=== PATIENT | female | born 1975 | race Caucasian/White ===

== ENCOUNTER 2016-11-30 20:14 | Inpatient (IN) | payer OTHER ==
[~2016-11-30] VITALS: Ht 162.6 cm; Wt 102.3 kg
[2016-11-30 20:17] VITALS: BP 139/104; PULSE 104; RESP 16; O2SAT 99
--- NOTE | 2016-11-30 21:24 | ED.REPORT ---
HPI-Psychiatric Illness Date of Service Nov 30, 2016 ED Provider: Michael Best MD Patient is a 41 year old female with a history of bipolar disorder with prior suicide attempt who presents to the ED complaining of suicidal ideations after a stressful situation yesterday. The patient was apparently arrested yesterday due to a financial situation that occurred last year. This made the patient very depressed and she informed her that if he was not with her she would commit suicide. The patient would commit suicide by shooting herself with her 's gun. The patient previously tried to commit suicide in 2014 by jumping in front of traffic. The patient has not had any previous psychiatric admissions. The patient is on psychiatric medications and is followed by a counselor. In fact, the patient had been doing so well that she is not currently seeing her counselor. Tonight, the patient first presented to [facility] for assistance. They were unable to coordinate admission, so she was referred to [facility]. There is currently a bed available at the Care [facility]. She admits to using marijuana every night to help her sleep. The patient denies alcohol or any other drug abuse. Patient does not smoke cigarettes. Patient denies having any medical complaints at this time. Nursing Notes Stated Complaint: SUICIDAL Chief Complaint: Psychiatric Complaint Nursing Notes Reviewed: Yes Allergies: Coded Allergies: azithromycin (Verified Allergy, Severe, rash and swelling, 11/30/16) Penicillins (Verified Allergy, Intermediate, 11/30/16) peanut (Verified Allergy, Intermediate, 11/30/16) promethazine (Verified Allergy, Intermediate, 11/30/16) Scheduled Alprazolam (Alprazolam) 0.5 Mg Tablet 0.5 MG PO BIDBL Takes in AM and noon Amiloride (Amiloride) 5 Mg Tablet 5 MG PO DAILY Bupropion ER (Bupropion ER) 300 Mg Tab.er.24h 300 MG PO DAILY Cholestyramine (Cholestyramine Packet) 4 Gm Packet 4 GM PO QPM takes at 1800 (2-4 hours apart from other meds) Folic Acid (Folic Acid) 1 Mg Tablet 1 MG PO DAILY Hydroxychloroquine Sulfate (Hydroxychloroquine Sulfate) 200 Mg Tablet 400 MG PO DAILY Isometheptene Mucate (Isometheptene Mucate) 5 Gm Powder 65 MG ORAL QID Lamotrigine (Lamictal) 200 Mg Tablet 200 MG PO HS Meloxicam (Meloxicam) 7.5 Mg Tablet 7.5 MG PO DAILYWL Takes at noon Omeprazole (Omeprazole) 40 Mg Capsule.dr 40 MG PO BIDAC Takes at 0900 and 1600 Venlafaxine ER (Venlafaxine ER) 150 Mg Tab.er.24 150 MG PO DAILY Zolpidem (Zolpidem) 10 Mg Tablet 10 MG PO HS Scheduled PRN Cyclobenzaprine (Cyclobenzaprine) 10 Mg Tablet 10 MG PO TID PRN PRN Spasm Prednisone (PredniSONE) 5 Mg Tab 5-20 MG PO DAILY PRN PRN RA flare Tramadol (Tramadol) 50 Mg Tablet 50 MG PO Q6H PRN PRN For Pain General Time Seen by MD: 21:23 Chief Complaint Suicidal ideation Hx Obtained From: Patient Arrived By: Walk-in Onset Occurred: Yesterday Symptom Duration: Since onset Severity: Current: No pain currently Severity: Maximum: No pain Recent Healthcare: No recent doctor visit, No recent hospitalization Similar Sx Previous: Yes Risk-Psychiatric Illness Suicide Risk Stratification Suicide Risk Factors - Adult: : Access to firearms: Previous attemptNo: Alcohol use, Prior psych admission, Substance abuse RF Statements: Risk factors reviewed Past Medical History Past Medical History bipolar disorder anxiety rheumatoid arthritis fibromyalgia IBS Past Surgical History none reported Smoking History Never Smoker Social History Drug Use: THC Other Social History: Good social support, , Lives with children, Local resident Ambulatory Status Independent Review of Systems Constitutional: Denies: Chills, Fever Psychiatric: Reports: Depression, Suicidal ideation Complete sys rev & neg: except as marked. Physical Exam Initial Vital Signs Vital Signs (First) Date Time Temp Pulse Resp B/P Pulse Ox O2 Delivery O2 Flow Rate FiO2 11/30/16 20:17 36.3 104 16 139/104 99 Room Air Initial VS: Reviewed, Vital signs abnormal Head / Eyes: Atraumatic, Normocephalic, PERRL ENT: Mucous membranes moist, Conjunctiva normal, No scleral icterus Neck: Supple, Non-tender, Full range of motion Respiratory: Breath sounds normal, Clear to auscultation, No respiratory distress Cardiovascular: Regular rate & rhythm, Heart sounds normal Abdomen / GI: Soft, Non-tender Extremities: Vascular intact, Neuro intact, No swelling Skin: Warm, Dry, No cyanosis General/Constitutional: Awake, Alert Behavior: Positive: Tearful Appearance / Presentation: Positive: Obese Neurologic: Oriented X3, Speech NL, No motor deficits, No sensory deficits Psychiatric: No hallucinations (does not appear to be reacting to internal stimuli) Abnormal Mood/Affect: Positive: Depressed, Flat affect Abnormal Thinking / Perception: Positive: Suicidal, with plan Interpretation & Diagnostics [facility] laboratory from earlier today is normal. Re-Eval/Medical Decision Med Decision/Clinical Course 41-year-old female with increasing depression and suicidal ideation was seen at [facility] earlier today and medically cleared. There was a bed available here so she was transferred here for admission. Source of Hx: Old records Re-Evaluation/Progress #1: Time of Eval: 21:45 Re-Evaluation/Progress Note: Informed the patient of the plan to admit her to the Care Center. Patient understands and agrees with this plan. All questions were addressed. Re-Evaluation/Progress #2: Time of Eval: 22:23 Re-Evaluation/Progress Note: Patient has been accepted to the Care Center. Consultation : Referral / Consult Name: BrunoNitza Mondragon MICK Note: Admission is accepted by [facility]. Counseled Regarding: Diagnosis, Lab results, Need for admission Discharge & Departure Impression: Primary Impression: Suicidal ideation Additional Impression: Depression Depression Type: reactive depression Qualified Code: F32.9 - Major depressive disorder, single episode, unspecified )( Condition at Discharge: Clear for psych facility Disposition: ADMITTED TO HOSPITAL Discharge Condition All VS Reviewed: Yes Condition: Stable Referrals: Alessandra Burton PA-C (PCP) Penny Attestation Portions of this note were transcribed by Paola Alexis. I, Dr. Best personally performed the history, physical exam and medical decision-making; I reviewed and confirmed the accuracy of the information in the transcribed note. Signed by: Penny Crowley, 11/30/2016 [id number] copies to: Alessandra Burton PA-C, Howard L MD Nov 30, 2016 21:24 Paola Alexis Nov 30, 2016 21:29
[2016-11-30] MEDS ORDERED: lamoTRIgine 100 mg Tablet PO ONE (22:20)
[2016-11-30] MEDS ORDERED: MIDRIN PO ONE (22:30)
[2016-11-30] MEDS ORDERED: PRD5T PO (23:28)
[2016-11-30] MEDS ORDERED: BUPR300T52 PO (23:28)
[2016-11-30] MEDS ORDERED: TRAM50TA2 PO (23:28)
[2016-11-30] MEDS ORDERED: HYDR200T5 PO (23:28)
[2016-11-30] MEDS ORDERED: MELO-259 PO (23:28)
[2016-11-30] MEDS ORDERED: AMIL5TAB2 PO (23:28)
[2016-11-30] MEDS ORDERED: QUE9 PO (23:28)
[2016-11-30] MEDS ORDERED: LAMO200T PO (23:28)
[2016-11-30] MEDS ORDERED: VENL150T3 PO (23:28)
[2016-11-30] MEDS ORDERED: CYCL10TA9 PO (23:28)
[2016-11-30] MEDS ORDERED: ZOLP10TA5 PO (23:28)
[2016-11-30] MEDS ORDERED: ALPR0.5T8 PO (23:28)
[2016-11-30] MEDS ORDERED: FOLI1TAB18 PO (23:28)
[2016-11-30] MEDS ORDERED: [UNRECOGNIZED DRUG - CODE] ORAL (23:29)
[2016-11-30] MEDS ORDERED: OMEP40CA36 PO (23:29)
[2016-12-01 00:22] VITALS: BP 132/81; PULSE 98; RESP 18; O2SAT 98
[2016-12-01] MEDS ORDERED: Magnesium Hydroxide 10 mL Oral Concentration PO PRN (01:10)
[2016-12-01] MEDS ORDERED: Alum-Mag Hydrox-Simeth 30 mL Suspension PO PRN (01:10)
[2016-12-01] MEDS ORDERED: Benzocaine-Menthol Lozenge 2/Pkg PO PRN (01:10)
--- NOTE | 2016-12-01 03:04 | NUR ---
admit note nursing 11-7 this is a 41 year old female who presented to [facility] seeking voluntary admission. she was medically cleared, evaluated and accepted as a voluntary patient. she had an encounter with police yesterday concerning financial irregularities with a past employer and has rapidly decompensated with significant suicidal ideation. has a hx of bipolar which is managed with her pcp prescribing and [facility] counseling. has 3 past suicide attempts the last being in 2014 when she attempted to jump into traffic. has no prior hospitalizations. currently feels her family would be better off without her and that she would use a gun if left alone. has secured the firearms. she arrived with er staff/security at 0025. presented as distraught, crying and seeking help. physical assessment- denies any acute medical/physical injury/need and none is apparent. is a/o x3, vs- wnl, multiple allergies including PEANUTS, ht- 64" wt- 225 lbs. hx of migraines, bipolar, fibromyalgia, rheumatoid arthritis, ibs, cholecystectomy, breast reduction, skin cancer. completed the admission process, agrees to no self harm, searched, briefly oriented to the admission process, given bed 220, asked for and received 5 mg of ambien at 0140 with good effect, has appeared to sleep after 0200, assessed q 15 minutes. jamila
[2016-12-01] MEDS: hydrOXYzine Pamoate 25 mg Capsule PO PRN (10:06)
[2016-12-01 11:00] VITALS: BP 144/89; PULSE 108; RESP 18
--- NOTE | 2016-12-01 11:44 | NUR ---
Nursing Notes [id number] Mood, Behavior S/O: Pt ate 20% of breakfast. Pt out in milieu with very sad affect. Pt is tearful when approached. Pt rated her anxiety at a "9" on a scale of 1-10/10 the worst. Pt stated, "It was a 12 before I met with the doctor." Vistaril 50 mg given at 1006. Pt con't to be anxious 1 1/2 later. Pt attended groups today. Her affect was calmer while she was working on a card. Pt rated her depression at a "8." A: Pt needs help regulating her emotions. P: Provide supportive environment. Monitor medications & effects.
[2016-12-01] MEDS: buPROPion XL 300 mg ER24 Tablet PO SCH (13:26)
[2016-12-01] MEDS: Hydroxychloroqine 200 mg Tablet PO SCH (13:26)
[2016-12-01] MEDS: Venlafaxine XR 75 mg ER24 Capsule PO SCH (13:27)
[2016-12-01] MEDS: Pantoprazole 40 mg ER24 Tablet PO SCH (16:41)
--- NOTE | 2016-12-01 17:02 | NUR ---
Observations 0900 to 2130 Pt affect and mood was anxious, sullen, flat and emotional. Pt speech and eye contact was ok. Pt did not attend community meeting and did not set a daily goal. Pt was minimally social with staff and select peers when approached. Pt did some art in the group room and she appeared to be enjoying it. Pt give short responses when approached. Pt attended meals in [facility] and ate 20% of breakfast and 100% of lunch. Pt maintained behavior throughout the shift. Pt was polite, pleasant and cooperative. Pt watched a little bit of TV and read the newspaper. Pt took a shower and she stated that it helped her anxiety. Pt was observed every 15 minutes throughout the shift as ordered.
--- NOTE | 2016-12-01 19:43 | HP ---
[address] [address] HISTORY AND PHYSICAL PATIENT: MADISON FRYE : 1975 MR#: [id number] ADMIT: 12/01/2016 JOB ID: [id number] INITIAL PSYCHIATRIC ASSESSMENT: IDENTIFYING DATA: The patient is a 41-year-old female with a history of depression who it is admitted on a voluntary basis due to worsening depression and suicidal ideation. CHIEF COMPLAINT: "I had a very stressful time happen on Monday and I didn't have any memory of what I am accused of." HISTORY OF PRESENT ILLNESS: The patient reports a history of bipolar disorder with prior suicide attempt who presented to the emergency department with suicidal ideation following an arrest on the day prior to admission due to a financial situation that occurred last year. The patient reports that she was feeling worsening depression and said that she would commit suicide by shooting herself with her 's gun. The patient had a prior suicide attempt by jumping out of a car in front of traffic in 2014. According to chart notes the patient first presented to [facility] for assistance and they were unable to coordinate admission so she was rushed deferred to [facility] and admitted to the Care unit. The patient states today that on the event noted above she "felt foggy and could not remember." Regarding her diagnosis of bipolar disorder, she reports having huge bursts of energy where she would clean the whole house, endless amounts of energy, which would alternate with not being able to leave the house or even answer the phone. She also reported during her manic episodes on line shopping excessively and decreased sex drive. She reports anxiety "off the chart" and that she "can't turn off my inner dialogue." She gives an example that the voices would say "did I messed up by talking to the police?" She reports having used Xanax for several years and has been taking it in the morning and at 4 p.m. She does endorse having increasing anxiety prior to the 4 p.m. dose. She reports having pain or headaches once a week, or sometimes greater, due to anxiety. She reports feeling depression most of her life, but her manic-like behaviors did not begin until her teenage years. She also reported that trying to mimic what other people are doing and endorses putting on a happy face when internally feeling quite depressed. She reports recently having difficulty with decision making, which has been complicated by having her special needs son. She reports her sleep has been horrible and she sleeps 6-8 hours using Ambien. She endorses having nightmares often about her special needs son. Her appetite is decreased with a 25-pound weight loss in four months. Energy has been decreased over the last 1-1/2 months and libido is decreased. PAST PSYCHIATRIC HISTORY: Inpatient: The patient denies inpatient treatment. Outpatient: Her last counselor was Mary Ngo, who she has seen off and on for the last five years. Her psychiatrist was MICK Martinze, but she last saw him seven years ago. Her primary care provider is Alessandra Burton PA-C, who has been prescribing her medications. PAST PSYCHIATRIC MEDICATIONS: She had difficulty remembering but said that she has been tried on Zoloft and Prozac which were not helpful and had talked about Depakote. PAST SUICIDE ATTEMPTS: In 1995 she cut her wrists but did not do much damage and needed no treatment. In 2014 she jumped out of the moving car near [employer]. She denies a history of self injurious behavior. FAMILY HISTORY: Family history of mental health significant for a sister with borderline personality disorder, bipolar disorder, and schizophrenia. Reports OCD and depression in the family. She denies a family history of suicide, although her sister accidentally overdosed. The family history of substance use is significant for a sister with polysubstance use as noted above. The family medical history is significant for cancer in her mother and the patient with malignant melanoma. SUBSTANCE USE HISTORY: The patient used to use alcohol but does not due to her migraines. She reports using marijuana and vaping at night although her urine tox screen is negative. She denies a history of cocaine, amphetamines, heroin, inhalants, hallucinogens or opiates, or IV drug abuse. She denies treatment for substance use. SOCIAL HISTORY: She was born and raised in [place] and has a sister who overdosed at the age of 44. She reports her family was intact when she was growing up and reported a pretty normal family up until the age of 13 when her sister went into drugs. She has known her for 24 years and they have been for 23 years and they have two boys, one age 17 who has special needs and the other age 15. She has some college. She has never worked in the . In the past she has worked for the [employer]. 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 Her is currently retired and they live on his income. She currently lives with her and two sons and her and mother are her primary supports. The patient denied a history of physical, sexual, or emotional abuse, but did endorse intrusive thoughts of being in [place] alone and feeling very isolated. She possibly has some increased startle and her hands balled up. LEGAL HISTORY: Significant for a recent felony theft 1 charge. PAST MEDICAL HISTORY: Malignant melanoma, currently symptom free after excision of lesion, and sees her booth manager on a yearly basis. She also has a history of rheumatoid arthritis, fibromyalgia, and irritable bowel syndrome. She endorses a history of traumatic brain injury and loss of consciousness at the age of [age] and is unsure if she received treatment. MEDICATIONS: 1. Alprazolam 0.5 mg twice daily. 2. Amiloride 5 mg daily. 3. Bupropion ER 300 mg daily. 4. Cholestyramine 4 g p.o. evening. 5. Folic acid 1 mg daily. 6. Hydroxychloroquine 200 mg tablets 400 mg daily. 7. Isometheptene mucate 5 g powder 65 mg orally four times a day. 8. Lamotrigine 200 mg nightly. 9. Meloxicam 7.5 mg daily. 10. Omeprazole 40 mg twice daily. 11. Venlafaxine 150 mg daily. 12. Zolpidem 10 mg nightly. 13. Cyclobenzaprine 10 mg three times a day as needed for spasm. 14. Prednisone 5 mg tablet 5-20 mg daily as needed for rheumatoid flare. 15. Tramadol 50 mg every 6 hours as needed for pain. 16. Percocet as needed for pain. ALLERGIES: AZITHROMYCIN, PENICILLINS, PEANUTS, AND PROMETHAZINE. LABORATORY FINDINGS: Urine tox screen was positive for benzodiazepines and tricyclics, but negative for marijuana. MENTAL STATUS EXAMINATION: Appearance: The patient is an appropriately dressed and groomed female appearing her stated age who is wearing hospital scrubs and with short cut hair in a light pink color. Behavior: The patient was cooperative, with avoidant eye contact, and tearful and dabbing at her tears throughout the interview. Speech: Demonstrated latency and rather slow rate, but normal tone and volume. Mood is "terrified." Affect is tearful. Thought content: She denies suicidal or homicidal ideation, but "wanted to run away." She agrees to notify staff should she have suicidal thoughts. She denies auditory or visual hallucinations, thought insertion, thought broadcasting, thought withdrawal, ideas of reference. She reports that her anxiety is 9/10 and her depression is 8/10. She is oriented to November, the [facility]. Thought processes: Linked and linear, goal directed. Memory: She had 3/3 object recall at 0 minutes and 0/3 object recall at 3 minutes. She was able to spell the word "world" correctly forward and backward and was able to name three objects and repeat the phrase "no ifs, ands, or buts. She was aware that the current president was Myra and the preceding president was Obama. She stated the distance from here to the [facility] of the [facility] was 5000 miles. Regarding the phrase "don't cry over spilled milk" she stated "people in the community said you shouldn't worry about things that really didn't make a difference." Regarding the phrase "people in glass houses shouldn't throw stones," she stated "no idea." Insight: Good. Judgment: Fair. Sensorium: Overall intact, without evidence of delirium or dementia. IMPRESSION: The patient is a 41-year-old female with a history of mood swings and bipolar disorder who presents with worsening depression in the context of a recent arrest and the stressor of not recalling events. The patient's alprazolam use is likely contributing to her recent increase in anxiety as she is likely having breakthrough anxiety as the alprazolam wears off later in the day. The patient also reports trauma-related nightmares which she has had for a number of years. DIAGNOSTIC IMPRESSION: [place] I: 1. Bipolar II disorder, current episode depressed. 2. Probable post-traumatic stress disorder. 3. Panic disorder. [place] II: Histrionic and dependent traits versus disorder. [place] III: See past medical history. [place] IV: Moderate. [place] V: Global Assessment of Functioning 35. PLAN: 1. The patient will be [facility] and provided a safe and secure environment. 2. The patient is currently denying suicidal ideation and is not in need of a one-to-one at this time. She is agreeable to notifying us should she have any acute suicidal or homicidal thoughts. 3. The patient is encouraged to participate with group and milieu activities. 4. The patient will be seen by the treatment team on a daily basis to assess symptoms, side effects, response to treatment. 5. The patient will be continued on lamotrigine 200 mg at bedtime. 6. The patient will be continued on Wellbutrin 300 mg daily. 7. The patient will have prazosin 1 mg at bedtime added for nightmares. 8. Venlafaxine will be increased to 225 mg daily. 9. Other medications will be continued as noted above. 10. Alprazolam will be switched to clonazepam 0.5 mg twice daily. 11. Anticipated length of stay is 5-7 days.
[2016-12-01] MEDS: ISOMETHEPTENE PO SCH (20:42)
[2016-12-01] MEDS: [UNRECOGNIZED DRUG - OTHER] PO SCH (20:42)
[2016-12-01] MEDS: lamoTRIgine 100 mg Tablet PO SCH (20:44)
[2016-12-01] MEDS ORDERED: Cholestyramine Resin Powder 4 Gm Packet PO SCH (21:00)
--- NOTE | 2016-12-01 22:23 | NUR ---
Nurses Note Evening Patient has been on the unit reading until after dinner when she was visited by her . Her affect has been blunted with an underlying irritated edge. Her appetite,hygiene were within normal limits. She denied feelings of self harm and will be monitored q 15min. for safety and support. Addendum: 12/01/16 at 2237 by AMELIA SUTHERLAND RN Amended: Links added.
--- NOTE | 2016-12-02 05:27 | NUR ---
nursing, nights, 11-7 s/o- has appeared to sleep after 0015 during q 15 minute assessments. a- difficulty falling asleep ? no apparent distress. p- monitor behavior/emotional state, quality, times and amount of sleep, use and effect of medication. jamila
[2016-12-02] MEDS: [UNRECOGNIZED DRUG - OTHER] PO SCH ×4 (07:39→22:02)
[2016-12-02] MEDS: ISOMETHEPTENE PO SCH ×4 (07:39→22:02)
[2016-12-02] MEDS: Hydroxychloroqine 200 mg Tablet PO SCH (07:41)
[2016-12-02] MEDS: buPROPion XL 300 mg ER24 Tablet PO SCH (07:41)
[2016-12-02] MEDS: Pantoprazole 40 mg ER24 Tablet PO SCH ×2 (07:46→16:47)
[2016-12-02] MEDS: Venlafaxine XR 75 mg ER24 Capsule PO SCH (07:46)
[2016-12-02] MEDS: oxyCODONE-Acetamin 5-325 mg Tablet PO PRN ×2 (08:22→17:43)
[2016-12-02 10:11] VITALS: BP 163/90; PULSE 105; RESP 16
--- NOTE | 2016-12-02 14:33 | PCM.PNPSY ---
Subjective Date of Service Dec 02, 2016 Subjective The patient reports that her visit last night was "supportive and reaffirming." She reported that normally when her would leave on a plane then she would "fall apart" but when he left last night she did not. She also reported that her boys are taking her absence and the situation well. She reported that her "mind is not beating itself up as much." She also reported that she fell asleep and woke up in the morning without any nocturnal awakening which is quite unusual. She is denying side effects. Sleep: 6.5 hours, "rested " Appetite: "Still not good" Suicidal and homicidal ideation: Denies Auditory hallucinations/Visual hallucinations: Denies Other Psychotic Symptoms: N/A Anxiety: "Way down" 01/02 Depression: 03/04 Current Medications Current Medications Amiloride HCl 5 mg DAILY PO Last administered on 12/02/16 08:11; Admin Dose 5 MG; Start 12/01/16 at 12:35 Bupropion HCl 300 mg DAILY PO Last administered on 12/02/16 07:41; Admin Dose 300 MG; Start 12/01/16 at 12:35 Cholestyramine Resin 4 gm HS PO Last administered on 12/01/16 20:42; Admin Dose 4 GM; Start 12/01/16 at 21:00 Clonazepam 0.5 mg BID PO Last administered on 12/02/16 07:46; Admin Dose 0.5 MG ; Start 12/01/16 at 12:35 Folic Acid 1 mg DAILY PO Last administered on 12/02/16 07:46; Admin Dose 1 MG; Start 12/01/16 at 12:35 Hydroxychloroquine Sulfate 400 mg DAILY PO Last administered on 12/02/16 07:41 ; Admin Dose 400 MG; Start 12/01/16 at 12:35 Hydroxyzine Pamoate 50 mg Q4H PRN PO Last administered on 12/01/16 10:06; Admin Dose 50 MG; Start 12/01/16 at 01:10 Lamotrigine 200 mg HS PO Last administered on 12/01/16 20:44; Admin Dose 200 MG ; Start 12/01/16 at 21:00 Lamotrigine 200 mg ONCE ONCE PO Last administered on 11/30/16 22:40; Admin Dose 200 MG; Start 11/30/16 at 22:20; Stop 11/30/16 at 22:21; Status DC Meloxicam 7.5 mg DAILYWL PO Last administered on 12/02/16 12:07; Admin Dose 7.5 MG; Start 12/02/16 at 12:00 Oxycodone HCl 2.5 mg Q6H PRN PO Last administered on 12/02/16 08:23; Admin Dose 2.5 MG; Start 12/01/16 at 19:30 Oxycodone/ Acetaminophen 1 tab Q6H PRN PO Last administered on 12/02/16 08:22 ; Admin Dose 1 TAB; Start 12/01/16 at 19:30 Pantoprazole 40 mg BIDAC PO Last administered on 12/02/16 07:46; Admin Dose 40 MG; Start 12/01/16 at 16:30 Patient Own Medication 1 ea QID PO Last administered on 12/02/16 12:07; Admin Dose 1 EA; Start 12/01/16 at 21:30 Prazosin HCl 1 mg HS PO Last administered on 12/01/16 20:43; Admin Dose 1 MG; Start 12/01/16 at 21:00 Venlafaxine HCl 225 mg DAILYWM PO Last administered on 12/02/16 07:46; Admin Dose 225 MG; Start 12/01/16 at 12:35 Zolpidem Tartrate Start with 5 mg and may rep... HS PRN PO Last administered on 12/01/16 20:46; Admin Dose 5 MG; Start 12/01/16 at 01:10 Mental Status Exam Vital Signs Vital Signs Date Time Temp Pulse Resp B/P Pulse Ox O2 Delivery O2 Flow Rate FiO2 12/02/16 10:11 36.4 105 16 163/90 Appearance: Neat/well groomed Attitude: Pleasant, Cooperative Behavior: Other (tremulous but much less than on admission) Affect: Restricted (smiles appropriately at times, no tears.) Mood: Dysthymic, Anxious Thought Process/Associations: Logical/Sequential, Goal Directed Speech Production: Normal Speech Rate: Normal Speech Articulation: Normal Thought Content: Appropriate, Negativistic Danger to Self/Suicidal Ideati: None Danger to Others: None Hallucinations: Auditory (Denies), Visual (Denies) Consciousness: Alert Orientation: Person, Place, Date, Situation Memory: Grossly Intact Estimate Intellectual Function: Average Basis for IQ estimate: Awareness current events, Word use/vocabulary, Educational history, Employment history Attention/Concentration & Cogn: Grossly Intact Insight: Good (improving) Judgement: Good (improving) Mental Health Plan The patient is a 41-year-old female with a history of mood swings and bipolar disorder who presents with worsening depression in the context of a recent arrest and the stressor of not recalling events. The patient's alprazolam use is likely contributing to her recent increase in anxiety as she is likely having breakthrough anxiety as the alprazolam wears off later in the day. The patient also reports trauma-related nightmares which she has had for a number of years. The patient reports responding well to her current medication changes but would like to still decrease her negative self talk and tremulousness. [place] I: 1. Bipolar II disorder, current episode depressed. 2. Probable post-traumatic stress disorder. 3. Panic disorder. [place] II: Histrionic and dependent traits versus disorder. [place] III: See past medical history. [place] IV: Moderate. [place] V: Global Assessment of Functioning 35. Treatments 1. The [facility] and provided a safe and secure environment. 2. The patient is currently denying suicidal ideation and is not in need of a one-to-one at this time. 3. The patient is encouraged to participate with group and milieu activities. 4. The patient will be seen by the treatment team on a daily basis to assess symptoms, side effects, response to treatment. 5. The patient will be continued on lamotrigine 200 mg at bedtime. 6. The patient will be continued on Wellbutrin 300 mg daily. 7. The patient will have prazosin 1 mg at bedtime added for nightmares. 8. Venlafaxine will be continued at 225 mg daily. 9. Other medications will be continued as noted above. 10. Continue clonazepam 0.5 mg twice daily. 11. The patient is given CBT worksheets, walked through the process of using them, and reported finding them effective in reducing negative thinking. 12. Patient may have visit with underage sons in multipurpose room as staff allows. 13. Anticipated length of stay is 5-7 days. Narayan Steven MD Dec 02, 2016 14:33 Narayan Steven MD Dec 02, 2016 14:33
[2016-12-02] MEDS: Cholestyramine Resin Powder 4 Gm Packet PO SCH (15:17)
--- NOTE | 2016-12-02 17:05 | NUR ---
Observations 0900 to 2130 Pt affect and mood was anxious, flat and brighter when engaged. Pt speech and eye contact was ok. Pt attended community meeting and set a daily goal. Pt was minimally social with staff and select peers when approached. Pt did some art in the group room and she appeared to be enjoying it. Pt attended meals in D.R. and ate 100% of meals. Pt maintained behavior throughout the shift. Pt was polite, pleasant and cooperative. Pt watched a little bit of TV and read her book. Pt was observed every 15 minutes throughout the shift as ordered.
[2016-12-02] MEDS: lamoTRIgine 100 mg Tablet PO SCH (22:02)
--- NOTE | 2016-12-02 22:16 | NUR ---
NURSING NOTE [id number] Mood= "much better than yesterday" Affect= pleasant, calm, cooperative Behavior= attended rec group and evening wrap-up group, her visited, social off and on w/peers, c/o stomach discomfort r/t her diet here on the unit and asked for Tums PRN, also c/o migraine pain and received Roxicodone and Percocet PRN. Received PRN Ambien 5 mg at HS. Thought processes= logical, linear, denies SI/HI, reports her anxiety is a little better today. Reports she is feeling better today after meeting with her doctor and reports "I feel like people are less scared of me now" (referencing other pts) and that "I was scary when I first came in" but that she feels "calmer" now.
--- NOTE | 2016-12-03 05:59 | NUR ---
Nursing notes: complaint clerk Patient observed to be sleeping on safety checks during the night. No complaints offered.
[2016-12-03] MEDS: Venlafaxine XR 75 mg ER24 Capsule PO SCH (07:44)
[2016-12-03] MEDS: Pantoprazole 40 mg ER24 Tablet PO SCH ×2 (07:44→17:07)
[2016-12-03] MEDS: [UNRECOGNIZED DRUG - OTHER] PO SCH ×4 (07:51→22:45)
[2016-12-03] MEDS: ISOMETHEPTENE PO SCH ×4 (07:51→22:45)
[2016-12-03] MEDS: Hydroxychloroqine 200 mg Tablet PO SCH (07:55)
[2016-12-03] MEDS: buPROPion XL 300 mg ER24 Tablet PO SCH (08:34)
[2016-12-03 10:35] VITALS: BP 130/81; PULSE 106; RESP 16
--- NOTE | 2016-12-03 12:07 | NUR ---
Nursing Day Shift- S- "It's not so bad today. I'm at my baseline. I'd say 2/10. (Migraine pain.) "It's uncomfortable to be in my head, but it's good." (Pt. response to being asked about CBT work sheets.) O- The Pt. had slept 6 plus hours per report. She was dressed and working on CBT paperwork at breakfast. She rated her migraine pain as 2/10 and denied SI and HI. A- Participatory and working on self awareness. P- Cont. BHTP. Possible discharge Monday.
--- NOTE | 2016-12-03 13:28 | NUR ---
Observations 0700 to 1900 Pt affect and mood was anxious, flat and brighter when engaged. Pt speech and eye contact was ok. Pt attended community meeting and set a daily goal. Pt was minimally social with staff and select peers when approached. Pt attended meals in D.R. and ate 100% of meals. Pt maintained behavior throughout the shift. Pt was polite, pleasant and cooperative. Pt watched a little bit of TV and read her book. Pt took a shower and attended to ADL's. Pt was observed every 15 minutes throughout the shift as ordered.
[2016-12-03] MEDS: hydrOXYzine Pamoate 25 mg Capsule PO PRN (14:08)
[2016-12-03] MEDS: Cholestyramine Resin Powder 4 Gm Packet PO SCH ×3 (14:19→21:00)
--- NOTE | 2016-12-03 17:09 | PCM.PNPSY ---
Subjective Date of Service Dec 03, 2016 Subjective The patient reports that yesterday she had a "long day in the art" which she enjoyed. The patient filled out multiple CBT worksheets and also stated that this was helpful in recognizing only negative thoughts she typically has. She reports having a good visit from her and father. She reported some anxiety thinking about having a meeting this coming Monday with the inflatable buildings laminator regarding her upcoming charges. She denies side effects from medications. She reported that she did not sleep as well last night as she had previously. Sleep: 5.5 hours, "not as well " Appetite: "Okay, my stomach was better." Suicidal and homicidal ideation: "Hopeless but not suicidal" Auditory hallucinations/Visual hallucinations: Denies Other Psychotic Symptoms: N/A Anxiety: 04/03 Depression: 04/03 Current Medications Current Medications Calcium Carbonate 500-1,000 MG Q6H PRN PO Last administered on 12/02/16 16:47 ; Admin Dose 1,000 MG; Start 12/01/16 at 23:00 Cholestyramine Resin 4 gm HS PO Last administered on 12/03/16 15:18; Admin Dose 4 GM; Start 12/02/16 at 14:40 Cholestyramine Resin 4 gm HS PO Last administered on 12/01/16 20:42; Admin Dose 4 GM; Start 12/01/16 at 21:00; Stop 12/02/16 at 14:38; Status DC Lamotrigine 200 mg HS PO Last administered on 12/02/16 22:02; Admin Dose 200 MG ; Start 12/01/16 at 21:00 Meloxicam 7.5 mg DAILYWL PO Last administered on 12/03/16 12:02; Admin Dose 7.5 MG; Start 12/02/16 at 12:00 Oxycodone HCl 2.5 mg Q6H PRN PO Last administered on 12/02/16 17:43; Admin Dose 2.5 MG; Start 12/01/16 at 19:30 Oxycodone/ Acetaminophen 1 tab Q6H PRN PO Last administered on 12/02/16 17:43 ; Admin Dose 1 TAB; Start 12/01/16 at 19:30 Patient Own Medication 1 ea QID PO Last administered on 12/03/16 11:19; Admin Dose 1 EA; Start 12/01/16 at 21:30 Prazosin HCl 1 mg HS PO Last administered on 12/02/16t 22:02; Admin Dose 1 MG; Start 12/01/16 at 21:00 Mental Status Exam Vital Signs Vital Signs Date Time Temp Pulse Resp B/P Pulse Ox O2 Delivery O2 Flow Rate FiO2 12/03/16 10:35 36.9 106 16 130/81 Appearance: Neat/well groomed Attitude: Pleasant, Cooperative Behavior: Other (tremulous but much less than on admission) Affect: Restricted Mood: Dysthymic, Anxious Thought Process/Associations: Logical/Sequential, Goal Directed Speech Production: Normal Speech Rate: Normal Speech Articulation: Normal Thought Content: Appropriate, Negativistic Danger to Self/Suicidal Ideati: None Danger to Others: None Hallucinations: Auditory (Denies), Visual (Denies) Consciousness: Alert Orientation: Person, Place, Date, Situation Memory: Grossly Intact Estimate Intellectual Function: Average Basis for IQ estimate: Awareness current events, Word use/vocabulary, Educational history, Employment history Attention/Concentration & Cogn: Grossly Intact Insight: Good (improving) Judgement: Good (improving) Mental Health Plan The patient is a 41-year-old female with a history of mood swings and bipolar disorder who presents with worsening depression in the context of a recent arrest and the stressor of not recalling events. The patient's alprazolam use is likely contributing to her recent increase in anxiety as she is likely having breakthrough anxiety as the alprazolam wears off later in the day. The patient also reports trauma-related nightmares which she has had for a number of years. The patient reports responding well to her current medication changes but would like to still decrease her negative self talk and tremulousness. We discussed limiting her CBT worksheets to 2 per day to reduce anxiety. We also discussed increasing prazosin to 2 mg at bedtime. [place] Tri[place] I: 1. Bipolar II disorder, current episode depressed. 2. Probable post-traumatic stress disorder. 3. Panic disorder. [place] II: Histrionic and dependent traits versus disorder. [place] III: See past medical history. [place] IV: Moderate. [place] V: Global Assessment of Functioning 35. Medications Bupropion 300 mg daily Lamotrigine 200 mg nightly Prazosin 1 mg nightly Venlafaxine XR 225 mg daily Clonazepam 0.5 mg twice daily Treatments 1. The [facility] will be [facility] and provided a safe and secure environment. 2. The patient is currently denying suicidal ideation and is not in need of a one-to-one at this time. 3. The patient is encouraged to participate with group and milieu activities. 4. The patient will be seen by the treatment team on a daily basis to assess symptoms, side effects, response to treatment. 5. The patient will be continued on lamotrigine 200 mg at bedtime. 6. The patient will be continued on Wellbutrin 300 mg daily. 7. Increase prazosin to 2 mg at bedtime for nightmares. 8. Venlafaxine will be continued at 225 mg daily. 9. Other medications will be continued as noted above. 10. Continue clonazepam 0.5 mg twice daily. 11. The patient is given CBT worksheets, walked through the process of using them, and reported finding them effective in reducing negative thinking, but will reduce to 2 sheets per day. 12. Patient may have visit with underage sons in multipurpose room as staff allows. 13. Anticipated length of stay is 5-7 days. Narayan Steven MD Dec 03, 2016 17:09
--- NOTE | 2016-12-03 19:55 | NUR ---
NURSING NOTE [id number] Mood= "not bad, good after my visit" Affect= a bit brighter than yesterday, calm, cooperative, can be self-deprecating at times Behavior= has been reading a book in the DR, visited w/her family, med compliant Thought processes= logical and linear, endorses depression but reports it has gotten better since being here, denies SI/HI/AH/VH. She at times gets down on herself when speaking to this newswriter, particularly she is apologetic about her condition and when asking for medications and apologizes for the amount of medications and the fact that she has to "take so many of these".
[2016-12-03] MEDS: oxyCODONE-Acetamin 5-325 mg Tablet PO PRN (22:11)
[2016-12-03] MEDS: lamoTRIgine 100 mg Tablet PO SCH (22:45)
--- NOTE | 2016-12-04 05:44 | NUR ---
Sleep Adequate sleep through the night with no noted distress or awakening per protocol checks. She has remained asleep since 0000 for a total of 5.5+ hours.
[2016-12-04] MEDS: [UNRECOGNIZED DRUG - OTHER] PO SCH ×4 (07:49→22:18)
[2016-12-04] MEDS: ISOMETHEPTENE PO SCH ×4 (07:49→22:18)
[2016-12-04] MEDS: Pantoprazole 40 mg ER24 Tablet PO SCH ×2 (07:50→16:41)
[2016-12-04] MEDS: Hydroxychloroqine 200 mg Tablet PO SCH (07:51)
[2016-12-04] MEDS: buPROPion XL 300 mg ER24 Tablet PO SCH (07:52)
[2016-12-04] MEDS: Venlafaxine XR 75 mg ER24 Capsule PO SCH (08:04)
--- NOTE | 2016-12-04 10:04 | NUR ---
Nursing Day Shift- S- "I ended the night on a hi note. Today I'm not shaky. I slept great, maybe a little to much. No nightmares." O- Pt. was dressed and awake for breakfast. She eat well, then colored. She expressed the above after breakfast. Pt. denied SI and HI. A- Mood and sleep continue to improve. Participatory. P- Cont. TP.
[2016-12-04 10:42] VITALS: BP 142/88; PULSE 105; RESP 16
[2016-12-04] MEDS: Cholestyramine Resin Powder 4 Gm Packet PO SCH (14:26)
--- NOTE | 2016-12-04 15:39 | NUR ---
Linen Worker./ c.m. S.:"I'm really tired. Time savings doesn't go well with me." O.: met with pt. and MD together to assess pt.'s progress. She slept well last night without nightmares. She had a good family visit yesterday and she was happy to see her boys. She started journaling yesterday in the evening and did it today in the morning. "I really like it. It helps me to see more positive things. My thoughts are more positive today." She denied SI/HI - "I'm more of questioning why I went there (SI)." She denied AH/VH or paranoid/delusional thoughts. She is "eating better and feel less shaky". She rated depression at 4-5/10. She felt more relaxed. She couldn't rate her anxiety at the time of the interview. She was asking about possible discharge home tomorrow. She agreed to work on her Safety plan. A.: pt. is cooperative, pleasant, looks brighter and calmer. P.: monitor behavior, work on follow up, check Safety plan; follow care plan.
--- NOTE | 2016-12-04 18:20 | PCM.PNPSY ---
Subjective Date of Service Dec 04, 2016 Subjective The patient reports "really tired today from daylight savings time." She reports that yesterday, "a rough afternoon and then a good night." She reports that the visit with her children went well and although she had been apprehensive, it ultimately ended up well. She reports working on her gratitude journal which she found quite helpful. She reports her current mood is a 5 or 10. She reported that seeing her boys made her think "why would I be suicidal as I would only hurt them?" She did experience some guilt regarding this. She reports art group very helpful. She states she would still like to see more positive thoughts coming forward but feels that the CBT work sheets are useful in reducing negative thoughts and perseveration. No significant side effects reported. Sleep: 7+ hours Appetite: "Better, no stomach pain." Suicidal and homicidal ideation: Denies Auditory hallucinations/Visual hallucinations: Denies Other Psychotic Symptoms: N/A Anxiety: "Was up and down," yesterday 04/03 Depression: "My negative thoughts were not on a continuous loop." -02/01, yesterday 04/03 Current Medications Current Medications Cholestyramine Resin 4 gm DAILY@1430 PO Last administered on 12/04/16 14:26; Admin Dose 4 GM; Start 12/04/16 at 14:30 Prazosin HCl 2 mg HS PO Last administered on 12/03/16 22:45; Admin Dose 2 MG; Start 12/03/16 at 21:00 Mental Status Exam Vital Signs Vital Signs Date Time Temp Pulse Resp B/P Pulse Ox O2 Delivery O2 Flow Rate FiO2 12/04/16 10:42 36.2 105 16 142/88 Appearance: Neat/well groomed Attitude: Pleasant, Cooperative Behavior: No unusual behavior Affect: Restricted Mood: Dysthymic, Anxious Thought Process/Associations: Logical/Sequential, Goal Directed Speech Production: Normal Speech Rate: Normal Speech Articulation: Normal Thought Content: Appropriate, Negativistic Danger to Self/Suicidal Ideati: None Danger to Others: None Hallucinations: Auditory (Denies), Visual (Denies) Consciousness: Alert Orientation: Person, Place, Date, Situation Memory: Grossly Intact Estimate Intellectual Function: Average Basis for IQ estimate: Awareness current events, Word use/vocabulary, Educational history, Employment history Attention/Concentration & Cogn: Grossly Intact Insight: Good (improving) Judgement: Good (improving) Mental Health Plan The patient is a 41-year-old female with a history of mood swings and bipolar disorder who presents with worsening depression in the context of a recent arrest and the stressor of not recalling events. The patient's alprazolam use is likely contributing to her recent increase in anxiety as she is likely having breakthrough anxiety as the alprazolam wears off later in the day. The patient also reports trauma-related nightmares which she has had for a number of years. The patient reports responding well to her current medication changes but would like to still decrease her negative self talk. We discussed limiting her CBT worksheets to 2 per day to reduce anxiety and she states that she prefers the present time to do journaling and one to 2 sheets per day. The increased dose of process and appears to be helpful for her nightmares and sleep. [place] I: 1. Bipolar II disorder, current episode depressed. 2. Probable post-traumatic stress disorder. 3. Panic disorder. [place] II: Histrionic and dependent traits versus disorder. [place] III: See past medical history. [place] IV: Moderate. [place] V: Global Assessment of Functioning 35. Medications Bupropion 300 mg daily Lamotrigine 200 mg nightly Prazosin 1 mg nightly Venlafaxine XR 225 mg daily Clonazepam 0.5 mg twice daily Treatments 1. The patient will be admitted to the [facility] and provided a safe and secure environment. 2. The patient is currently denying suicidal ideation and is not in need of a one-to-one at this time. 3. The patient is encouraged to participate with group and milieu activities. 4. The patient will be seen by the treatment team on a daily basis to assess symptoms, side effects, response to treatment. 5. The patient will be continued on lamotrigine 200 mg at bedtime. 6. The patient will be continued on Wellbutrin 300 mg daily. 7. The patient will be continued on prazosin 2 mg at bedtime for nightmares. 8. Venlafaxine will be continued at 225 mg daily. 9. Other medications will be continued as noted above. 10. Continue clonazepam 0.5 mg twice daily. 11. The patient is given CBT worksheets, walked through the process of using them, and reported finding them effective in reducing negative thinking, but will keep to no more than 2 sheets per day. 12. Patient may have visit with underage sons in multipurpose room as staff allows. 13. Anticipated length of stay is 5-7 days. Narayan Steven MD Dec 04, 2016 18:20
--- NOTE | 2016-12-04 18:23 | NUR ---
[facility] Day Shift Pt maintained behavioral control throughout the shift. Pt affect appears euthymic, occasionally bright. Pt spends most of the shift engaging in unit activities in the dining room or reading in her room. Pt is appropriate with staff and peers when active on the unit. Pt attended community meeting and all group activities throughout the shift. Pt attended all meals and ate approx 100% of all meals.
--- NOTE | 2016-12-04 20:33 | NUR ---
NURSING NOTE [id number] Mood= "It's okay" Affect= calm, pleasant, brightens in conversation Behavior= pt. visible on the unit, mostly keeping to herself and reading or journaling. Her visited for several hrs. Med compliant. Thought processes= pt. reports she feels ready to leave tomorrow, that she feels her depression has improved, and expressed she is grateful for the care she has received here. Denies SI/HI.
[2016-12-04] MEDS: lamoTRIgine 100 mg Tablet PO SCH (22:19)
--- NOTE | 2016-12-05 06:06 | NUR ---
Nursing Note - Marketing Development Representative 11pm to 7am Pt came to the nursing station concerned about over head page indicating a hospital lock down. " What's does that mean? There is a helicopter landing outside my window. I'm a little freaked out". Pt provided reassurance given a repeat of Ambien 5mg po and went to asleep at 0100 and stayed asleep the remainder of the shift. Pt anxious for discharge.
[2016-12-05] MEDS: [UNRECOGNIZED DRUG - OTHER] PO SCH ×4 (07:29→22:12)
[2016-12-05] MEDS: ISOMETHEPTENE PO SCH ×4 (07:29→22:12)
[2016-12-05] MEDS: buPROPion XL 300 mg ER24 Tablet PO SCH (07:31)
[2016-12-05] MEDS: Pantoprazole 40 mg ER24 Tablet PO SCH ×2 (07:31→17:18)
[2016-12-05] MEDS: Hydroxychloroqine 200 mg Tablet PO SCH (07:31)
[2016-12-05] MEDS: Venlafaxine XR 75 mg ER24 Capsule PO SCH (07:32)
[2016-12-05 13:36] VITALS: BP 129/80; PULSE 105; RESP 17
--- NOTE | 2016-12-05 14:53 | NUR ---
Nursing: Day shift: S: 929 I don't want to be discharged today because my won't be home tomorrow. 1300.My will be home tomorrow now and I would like to go home today. Here I got stabilized on new medication and I can't have it when I want to leave. O: Initially, pt stated that her anxiety had "spiked" after a phone call with in which he stated she needed to be "well enough to be safe at home". Since he would not be home today, she stated she did not want to leave today. Rated anxiety at 04/03. Declined any PRN meds for anxiety. Rated depression as 'not'. Rated suicidal ideation at 12/02. Made several phone calls. At 1145, pt requested and received Ativan 1 mg at 1150. Pt calmed and ate lunch. At 1300, she stated that she had made arrangements with her that would work better for her to be discharged today. When pt was told at 1440 that she would not be discharged today, she became tearful. A: Depressed. Anxious. States she is safe for discharge. P: Support until tomorrow's anticipated discharge. Addendum: 12/05/16 at 1704 by SWAPNIL GRAHAM RN Amended: Links added.
[2016-12-05] MEDS: Cholestyramine Resin Powder 4 Gm Packet PO SCH (15:05)
--- NOTE | 2016-12-05 16:39 | NUR ---
Obs Dayshift [id number] Pt is calm, co-operative, appropriate. Participates in groups, engages w/ peers when approached. Pt stated that she was anxious in the morning with the thought of being DC'd and feeling not ready, later patient found out that her could be home from work tomorrow and was happy to go home. Pt became very tearful and upset when she learned that Dr wanted her to stay another night and DC tomorrow. Pt is labile, tearful, sad, reserved, soft spoken, head down, ok eye contact. Pt is very polite w/ staff, spends much of the time working on art in group settings, reading, writing. Good ADL's, Good meals
[2016-12-05] MEDS: lamoTRIgine 100 mg Tablet PO SCH (20:01)
[2016-12-05] MEDS: oxyCODONE-Acetamin 5-325 mg Tablet PO PRN (20:03)
--- NOTE | 2016-12-06 00:21 | DIS ---
[address] [address] DISCHARGE SUMMARY PATIENT: MADISON FRYE : 1975 MR#: [id number] ADMIT: 12/01/2016 JOB ID: [id number] DIS: 12/06/2016 IDENTIFICATION: The client is a 41-year-old white female with history of depression who was admitted on a voluntary basis due to depression and suicidal ideation. SUMMARY OF PRESENT ILLNESS: Patient is a 41-year-old white female with history of mood swings and bipolar mood disorder, who presents with worsening depression in the context of her recent arrest and the stressor of not recalling events. The patient's alprazolam use is likely contributing to her recent increase in anxiety and she is likely having breakthrough anxiety as the alprazolam wears off later on during the day. The patient also reports trauma related nightmares which she has had for a number of years. The patient would like to decrease her negative self talk. HOSPITAL COURSE: Client was admitted to our unit and was provided with a high degree of safety through the structure and active adult engagement she received here. We had her participate in one-to-one unit and group activities focused on improving coping skills and coming up with a safety plan should suicidal ideation recur as an outpatient. She participated well in all the above activities. She worked with Dr. Steven on a daily basis, on December 02, and . I met with her today for a 30 minute session. We reviewed safety plan and I gave her several assignments. We met to go over discharge planning and medications. She consistently denied suicidal ideation plan or intent. She detailed a reasonable safety plan. She is requesting discharge and feels that she is at baseline. MENTAL STATUS EXAMINATION: Client neatly dressed. Good eye contact. Behavior calm. Attitude during my session in the morning was cooperative and pleasant. Mood was euthymic. Affect congruent with no emotional lability. Thought process: Client was able to relate a coherent history. She was able to appreciate simple and complex abstraction. Did not appear to be responding to internal stimuli. Thought content was significant for future planning, how she would take care of her needs. She consistently denied suicidal ideation, plan or intent to me. Client alert and oriented to person, place and date. Insight and judgment was appropriate. Impulse control highly contained, yet rigid. Client has a difficult time handling impulses of fear, anger, sadness and hunger. Reality testing intact. Competence to handle current stressors has appeared to return to baseline. DISCHARGE DIAGNOSES: AXIS I: 1. Posttraumatic stress disorder. 2. Rule out opiate addiction. 3. Rule out benzodiazepine addiction. AXIS II: Cluster B traits. AXIS III: 1. Fibromyalgia. 2. Irritable bowel syndrome. 3. Rheumatoid arthritis. 4. History of malignant melanoma. Symptom free. Sees a twill cutter on a yearly basis. [place] IV moderate [place] V 45 DISCHARGE MEDICATIONS: Klonopin 0.5 b.i.d., Effexor XR 225 daily prazosin one h.s. Lamictal 200 h.s. Wellbutrin 300daily. ACTIVITY AND DIET: Recommend client remain on current medications and not change her medications unless under the supervision of a physician. Recommend she refrain from recreational drugs and alcohol while taking psychiatric medications. Recommend client call the crisis line or return to the emergency department if she has suicidal ideation and feels that she needs containment and safety. CONDITION ON DISCHARGE: Fair. PROGNOSIS: Fair Follow-up client to see Mary Parker manager social media 12/09/2016 Client to follow up with physician digital sales assistant Alessandra Burton 12/21/2016 [place]
--- NOTE | 2016-12-06 00:45 | NUR ---
Observations 1900 to 0700 Pt was visiting with her when my shift started. Pt and visitor both seemed to enjoy the visit. Pt did attend wrap up group and have some snacks. Pt spent the rest of the night coloring until she went to her room in the late evening. pt was polite and cooperative. Pt first appeared asleep at 00:00 and was observed every 15 minutes through the night as directed. Addendum: 12/06/16 at 0052 by DANIEL WELLINGTON [facility] Pt did attend wrap up group.
--- NOTE | 2016-12-06 05:46 | NUR ---
Nursing Note Weekend Caregiver 7pm to 7am Pt in day room visiting with at start of shift. Affect and mood dysphoric. Pt stated she was disappointed she was not discharged but is hopeful she will be tomorrow. Pts thoughts organized, logical and linear, is future oriented, and denies depressive symptoms and SI. Reports anxiety 02/01 due to issues with discharge. Pt requested HS meds at 1999, c/o of a migraine of 05/04, given Percocet and Roxicodone with good relief. Pt given Ambien 5mg prn at 2212. Slept through the night. In no acute distress. Monitored q 15 minutes for safety, location and accountability
[2016-12-06] MEDS: ISOMETHEPTENE PO SCH ×2 (06:30→11:30)
[2016-12-06] MEDS: [UNRECOGNIZED DRUG - OTHER] PO SCH ×2 (06:30→11:30)
[2016-12-06] MEDS: Pantoprazole 40 mg ER24 Tablet PO SCH (07:50)
[2016-12-06] MEDS: Venlafaxine XR 75 mg ER24 Capsule PO SCH (08:16)
[2016-12-06] MEDS: buPROPion XL 300 mg ER24 Tablet PO SCH (08:17)
[2016-12-06] MEDS: Hydroxychloroqine 200 mg Tablet PO SCH (08:17)
--- NOTE | 2016-12-06 10:18 | NUR ---
Display Mechanic./ c.m. S.:"I'm good. I'm waiting for my discharge." O.: met with pt. in the morning. She was reading a book and waiting for her appt. with MD. She denied SI/HI, denied AH/VH or paranoid/delusional thoughts. She had a good visit with her yesterday in the evening. Her will come to pick her up at time of discharge. She has follow up appt. for meds with her PCP, Alessandra Burton PA-C on December 21 at 9:30 am at [facility] in [place] ([phone]). She has follow up appt. for therapy on December 09 at 16:00 with Mary Parker LMSW in [place] ([phone]). She has intake appt. for psychiatric services on January 18 at 9:30 am with Freddy Paiz DO at [facility] in [place] ([phone]). A.: pt. is cooperative, pleasant, quiet, wants to go home as soon as possible. P.: monitor behavior, follow care plan.
[2016-12-06 10:58] VITALS: BP 130/85; PULSE 95; RESP 16
--- NOTE | 2016-12-06 12:16 | PCM.DIMED ---
Discharge Instructions Date of Service Dec 06, 2016 Dates of Hospitalization Dec 01, 2016 at 00:02 Discharge Diagnosis Discharge Diagnosis AXIS I: 1. Posttraumatic stress disorder. 2. Rule out opiate addiction. 3. Rule out benzodiazepine addiction. AXIS II: Cluster B traits. AXIS III: 1. Fibromyalgia. 2. Irritable bowel syndrome. 3. Rheumatoid arthritis. 4. History of malignant melanoma. Symptom free. Sees a aerosol line operator on a yearly basis. [place] IV moderate [place] V 45 Medication Instructions I Strongly encouraged patient to follow up with outpatient care: 1-Recommended patient takes medication as prescribed and not alter this unless under the direct care of a provider: Klonopin 0.5 b.i.d., Effexor XR 225 daily prazosin one h.s. Lamictal 200 h.s. Wellbutrin 300daily. 2-Recommend client refrain from recreational drugs and alcohol while taking psychiatric medications. 3-Recommend client start a 12 step program to deal with issues of addiction. 4-Recommend patient attempt to find a therapist or group to deal with impulse control and interpersonal relationship conflicts Diet No restrictions Activity No restrictions Call your provider Fever or Chills Patient Instructions Mary Parker social service director 12/09/2016 [place] Follow-up with physician bilingual office assistant Alessandra Burton 12/21/2016 Follow-up with PCP in: 2 weeks Bandar Starkey MD Dec 06, 2016 12:16
[2016-12-06] MEDS ORDERED: KLO5T PO (12:18)
[2016-12-06] MEDS ORDERED: PRAZ2CAP PO (12:18)
[2016-12-06] MEDS ORDERED: VENL75CA PO ×2 (12:18→12:35)
--- NOTE | 2016-12-06 12:55 | NUR ---
Nursing: Day shift and discharge S: I am ready to go home. I will be safe O: Elisa was up early and stated she was prepared for discharge. She remained on the open unit coloring most of the day until lunch. She denied any self-harm intent. Stated the ordered medications are working well. Packed all belongings, received information handouts about discharge meds, signed all papers. All outcomes met. Pt arranged to be picked up by ron. Awaiting discharge. Addendum: 12/06/16 at 1314 by SWAPNIL GRAHAM RN Note above should state pt was to be picked up by . At 1245, Pt was picked up by and left unit with all belongings. Pt took hard copies of prescriptions.
--- NOTE | 2016-12-06 13:03 | PROG NOTE ---
[address] [address] PROGRESS NOTE PATIENT: MADISON FRYE : 1975 MR#: [id number] ADMIT: 12/01/2016 JOB ID: [id number] DATE: 12/05/2016 IDENTIFICATION: I met with the patient for a 30 minutes session both reviewing treatment plan and providing supportive psychotherapy. I spent more than 50% of my time counseling the patient. I reviewed the treatment plan with the patient as well discussing available options including potential risks, benefits and side effects. The patient reported a marked improvement in thought organization and mood stability. She was working on a safety plan and was hoping to stay for an additional day. She denied suicidal ideation, plan or intent. She denied medication side effects. Staff reports she has been sleeping well and is participating actively in one-to-one unit and group activities. She was able to identify her medications and what they are used to treat. MENTAL STATUS EXAMINATION: Appearance: Neatly groomed, pleasant, cooperative, no unusual behavior. Her mood is euthymic. Her affect was congruent with no motion liability. Thought process: Client was able to relate a coherent history. She was able to appreciate simple and complex abstractions. She did not appear to be responding to internal stimuli. Her thought content was significant for future planning how she would take care of her needs. She consistently denied suicidal ideation, plan or intent. She was alert and oriented to person, place and date. Insight and judgment was appropriate. Impulse control: She was highly contained yet rigid. She has a difficult time handling impulses of fear, anger, sadness and hunger. Reality testing is intact. Competence to handle current stressors has appeared to return to baseline. DIAGNOSIS: AXIS I 1. Bipolar 2 disorder, current episode depressed. 2. Posttraumatic stress disorder. 3. Panic disorder. AXIS II Histrionic independent traits. AXIS III 1. Fibromyalgia. 2. Irritable bowel. 3. Rheumatoid arthritis. 4. History of malignant melanoma. AXIS IV Moderate. AXIS V Current global assessment of functioning equal to 5. PLAN: The patient is being provided with a high degree of safety through the structure and active adult engagement she is receiving on our unit. We are focusing on trying to help her improve her coping skills and identify stressors that may have led to the current episode. She is being maintained in a closely monitored and structured unit. We are working on completing a safety plan should suicidal ideation recur as an outpatient. MEDICATIONS: Client is on: 1. Klonopin 0.5 b.i.d. 2. Effexor XR 225 daily. 3. Prazosin 1 h.s. 4. Lamictal 200 h.s. 5. Wellbutrin 300 daily. Anticipate discharge in 24-48 hours.
== END 2016-12-06 12:45 | disposition home or self-care (01) | DRG 885 ==
LOC: SED 20:14 → MHC 12-01 00:02
PROVIDERS: ADMIT Nurse Practitioner Psychiatric/Mental Health; ATTEND Psychiatry & Neurology Psychiatry
DX: F31.81 Bipolar II disorder (principal); F43.10 Post-traumatic stress disorder, unspecified; F41.0 Panic disorder [episodic paroxysmal anxiety]; F12.90 Cannabis use, unspecified, uncomplicated; M06.9 Rheumatoid arthritis, unspecified; K58.9 Irritable bowel syndrome, unspecified; M79.7 Fibromyalgia